=== PATIENT | female | born 1945 | race Hispanic/Latino ===

== ENCOUNTER 2019-04-23 06:58 | Inpatient (IN) | payer MEDICARE ==
[2019-04-23] MEDS ORDERED: Labetalol 5 mg/ml Inj 20ML IV STA (07:50)
[2019-04-23 08:09] LABS: BASO # 0.03 K/mm3 (0.0-2.0); BASO % 0.4 % (0.0-3.0); EOS # 0.2 (0.0-0.7); EOS % 2.1 % (1.5-5.0); LYMPH # 1.8 (1.2-3.4); LYMPH % 24.2 % (22.0-35.0); MEAN CELL VOLUME 87.6 fl (80.0-105.0); MEAN CORPUSCULAR HEMOGLOBIN 28.5 pg (25.0-35.0); MEAN CORPUSCULAR HGB CONC 32.5 g/dl (31.0-37.0); MEAN PLATELET VOLUME 9.2 fl (7.0-11.0); MONO # 0.5 (0.1-0.6); MONO % 6.2 % (1.0-6.0); RBC 3.86 10^6/uL (3.5-6.1); RED CELL DISTRIBUTION WIDTH 14.2 % (11.5-14.5); WHITE BLOOD COUNT 7.6 10^3/uL (4.5-11.0)
--- NOTE | 2019-04-23 08:11 | ED PDOC ---
Arrival/HPI - General Chief Complaint: Abdominal Pain Time Seen by Provider: 04/23/19 07:12 Historian: Patient, Spouse - History of Present Illness Narrative History of Present Illness (Text): 04/23/19 08:06 CC: abdominal pain HPI: 73 yo female w/ PMH of HTN, DM2, CAD comes to ED for evaluation of abdominal pain. Patient and were on cruise ship yesterday when she began feeling mid-epigastric pain. Patient states that she started experiencing intense aching epigastric pain that radiated to the back, vomited 8 times, and was subsequently see by the cruise ship doctors. The blood work from the cruise was sent over with a diagnosis of acute pancreatitis. Denies alcohol use and trauma prior to event. Today, patient is currently exhibiting no abdominal pain, nausea, or vomiting. Patient currently asymptomatic and has no complaints to offer. Denies fevers, chills, chest pain, shortness of breath, n/v, constipation or diarrhea, and dysuria. 04/23/19 08:12 Time/Duration: 24 hours Symptom Onset: Sudden Symptom Course: Resolved Quality: Aching, Stabbing Severity Level: 10, Severe Activities at Onset: Rest Context: Sitting Past Medical History - Provider Review Nursing Documentation Reviewed: Yes - Travel History If Yes, travel location?: Cruise - Infectious Disease Hx of Infectious Diseases: None - Cardiac Hx Coronary Artery Disease: Yes Hx Hypertension: Yes - Psychiatric Hx Substance Use: No Family/Social History - Physician Review Nursing Documentation Reviewed: Yes Family/Social History: No Known Family HX Smoking Status: Unknown If Ever Smoked Hx Alcohol Use: (N/A) Hx Substance Use: No Allergies/Home Meds Allergies/Adverse Reactions: Allergies Sulfa (Sulfonamide Antibiotics) Adverse Reaction (Verified 04/23/19 07:26) SWELLING Home Medications: Home Meds Medication Instructions Recorded Confirmed Ascorbic Acid [Vitamin C 500 mg 500 mg PO DAILY 04/23/19 04/23/19 Tab] Cetirizine HCl [Zyrtec] 10 mg PO DAILY 04/23/19 04/23/19 Cholecalciferol (Vitamin D3) 2,000 units PO MWF 04/23/19 04/23/19 [Vitamin D3] Lisinopril [Zestril] 10 mg PO BID 04/23/19 04/23/19 Multivit-Min/Iron/Folic/Lutein 1 tab PO DAILY 04/23/19 04/23/19 [Multivitamin Women 50 Plus Tab] Rosuvastatin Calcium [Crestor] 10 mg PO DAILY 04/23/19 04/23/19 Sertraline [Zoloft] 50 mg PO DAILY 04/23/19 04/23/19 cloNIDine [Catapres] 0.1 mg PO BID 04/23/19 04/23/19 metFORMIN [glucOPHAGE] 500 mg PO BID 04/23/19 04/23/19 Review of Systems - Review of Systems Constitutional: Normal. absent: Fatigue, Weight Change, Fevers Eyes: Normal. absent: Vision Changes, Photophobia, Eye Pain ENT: Normal. absent: Hearing Changes, Tinnitus, TMJ Pain Respiratory: Normal. absent: SOB, Cough, Sputum, Wheezing Cardiovascular: Normal. absent: Chest Pain, Palpitations, Edema Gastrointestinal: Normal. absent: Abdominal Pain, Stool Changes, Constipation, Diarrhea, Nausea, Vomiting Genitourinary Female: Normal. absent: Dysuria, Frequency, Hematuria, Vaginal Bleeding Musculoskeletal: Normal. absent: Arthralgias, Back Pain, Neck Pain, Joint Swelling Skin: Normal. absent: Rash, Pruritis, Skin Lesions Neurological: Normal. absent: Headache, Dizziness, Focal Weakness Endocrine: Normal. absent: Diaphoresis, Polyuria, Polydipsia Hemo/Lymphatic: Normal. absent: Adenopathy, Easy Bleeding, Easy Bruising Psychiatric: Normal. absent: Anxiety, Depression, Suicidal Ideation Physical Exam Vital Signs Reviewed: Yes Vital Signs Temp Pulse Resp BP Pulse Ox 04/23/19 07:39 98.6 F 04/23/19 07:16 82 20 196/118 H 98 Temperature: Afebrile Blood Pressure: Hypertensive Pulse: Regular Respiratory Rate: Normal Appearance: Positive for: Well-Appearing, Non-Toxic, Comfortable Pain Distress: None Mental Status: Positive for: Alert and Oriented X 3 - Systems Exam Head: Present: Atraumatic, Normocephalic Pupils: Present: PERRL Extroacular Muscles: Present: EOMI Conjunctiva: Present: Normal Mouth: Present: Moist Mucous Membranes Neck: Present: Normal Range of Motion. No: Meningeal Signs, JVD Respiratory/Chest: Present: Clear to Auscultation, Good Air Exchange. No: Respiratory Distress, Accessory Muscle Use, Wheezes Cardiovascular: Present: Regular Rate and Rhythm, Normal S1, S2. No: Murmurs, Tachycardic Abdomen: Present: Normal Bowel Sounds. No: Tenderness, Distention, Peritoneal Signs Upper Extremity: Present: Normal Inspection. No: Cyanosis, Edema Lower Extremity: Present: Normal Inspection. No: Edema Neurological: Present: GCS=15, CN II-XII Intact, Speech Normal Skin: Present: Warm, Dry, Normal Color. No: Rashes Psychiatric: Present: Alert, Oriented x 3, Normal Insight, Normal Concentration Medical Decision Making ED Course and Treatment: 04/23/19 08:14 Impression 73 yo female w/ PMH of HTN, DM2, CAD comes to ED for evaluation of abdominal pain. Plan -Lipid Panel -CBC -CMP -Lipase -Amylase -Labetalol -Troponin -EKG Prior Visits No prior visits Progress Notes pending above labs and cx response to anti-Hypertension agent 04/23/19 08:59 Blood work shows elevated lipase Spoke with Dr. Montesinos will accept patient to his service Re-evaluation Time: 09:24 Reassessment Condition: Re-examined, Unchanged - Lab Interpretations Lab Results: 04/23/19 07:58 04/23/19 07:58 Lab Results 04/23/19 07:58: Sodium 141, Potassium 3.3 L, Chloride 107, Carbon Dioxide 23, Anion Gap 14, BUN 16, Creatinine 0.7, Est GFR ( Amer) > 60, Est GFR (Non- Af Amer) > 60, Random Glucose 116 H, Calcium 9.3, Total Bilirubin 0.6, AST 23, ALT 23, Alkaline Phosphatase 84, Troponin I 0.02, Total Protein 7.2, Albumin 4.3, Globulin 2.9, Albumin/Globulin Ratio 1.5, Triglycerides 165 H, Cholesterol 164, LDL Cholesterol Direct 72, HDL Cholesterol 55, Lipase 2393 H 04/23/19 07:58: WBC 7.6, RBC 3.86, Hgb 11.0 L, Hct 33.8 L, MCV 87.6, MCH 28.5, MCHC 32.5, RDW 14.2, Plt Count 266, MPV 9.2, Neut % (Auto) 67.1, Lymph % (Auto) 24.2, [place] % (Auto) 6.2 H, Eos % (Auto) 2.1, Baso % (Auto) 0.4, Lymph # (Auto) 1.8, [place] # (Auto) 0.5, Eos # (Auto) 0.2, Baso # (Auto) 0.03, Absolute Neuts (auto) 5.06 I have reviewed the lab results: Yes Interpretation: Abnormal lab values - Medication Orders Current Medication Orders: Discontinued Medications Labetalol HCl (Trandate) 20 mg IV STAT STA Stop: 04/23/19 07:51 Disposition/Present on Arrival - Present on Arrival Any Indicators Present on Arrival: No History of DVT/PE: No History of Uncontrolled Diabetes: No Urinary Catheter: No History of Decub. Ulcer: No History Surgical Site Infection Following: None - Disposition Have Diagnosis and Disposition been Completed?: Yes Diagnosis: Pancreatitis Disposition: HOSPITALIZED Disposition Time: 09:03 Patient Plan: Admission Patient Problems: Current Active Problems Problem Status Onset Pancreatitis Acute Condition: FAIR Forms: [employer] (Irish)
[2019-04-23 08:22] LABS: ALB/GLOB RATIO 1.5 (1.1-1.8); ALBUMIN 4.3 g/dL (3.0-4.8); BLOOD UREA NITROGEN 16 mg/dL (7-21); CALCIUM 9.3 mg/dL (8.4-10.5); GFR NON-AFRICAN AMERICAN > 60; HDL CHOLESTEROL 55 mg/dL (29-60)
[2019-04-23 08:31] LABS: ALT/SGPT 23 U/L (7-56); AST/SGOT 23 U/L (14-36); LIPASE 2393 U/L (23-300)
[2019-04-23 08:35] LABS: TROPONIN I 0.02 ng/mL
[2019-04-23 08:39] LABS: LDL CHOLESTEROL 72 mg/dL (0-129)
[2019-04-23] MEDS ORDERED: Potassium Chloride 20 mEq ER Tab PO STA (11:02)
[2019-04-23] MEDS: Sodium Chloride 0.45% 1,000 ML IV SCH (11:05)
[2019-04-23] MEDS: Insulin Reg-MEDIUM-Coverage SC SCH ×3 (12:06→21:26)
--- NOTE | 2019-04-23 12:28 | CP.PCM.CON ---
<Leonid Laughlin - Last Filed: 04/23/19 12:19> History of Present Illness - History of Present Illness History of Present Illness: PGY6 GI Fellow Consult Note Patient is a 73yo female with PMHx significant for HTN, DM2, thoracic aortic aneurysm, left breast cancer s/p lumpectomy and radiation therapy who presented to the ED with abdominal pain. The patient has been on a cruise ship for the and two days prior to admission, she developed mid-lower back pain prior to bed. The following morning, she awoke with 10/10 epigastric stabbing pain and was evaluated by the ship physician and diagnosed with acute pancreatitis. She was given 4 liters of IVF and bowel rest and at this point, admits to significant improvement in symptoms but was encouraged to come to the ER. She admits to prior issues with gallstones but had cholecystectomy > 10 years ago in [place]. Does admit to 2+ beers daily but has not had any EtOH since boarding her ship last week. No new medications or sick contacts. Denies weight loss, change in bowel habits. 12 system ROS performed and negative except where stated PMHx: See HPI PSHx: Cholecystectomy, appendectomy, hysterectomy FHx: Discussed with patient and she denies significant family history Social: Deniest tobacco use, + EtOH use, no illicit drug use Endo: No prior endoscopic evaluations available for review Past Patient History - Infectious Disease Hx of Infectious Diseases: None - Past Social History Smoking Status: Unknown If Ever Smoked - CARDIAC Hx Hypertension: Yes - PSYCHIATRIC Hx Substance Use: No Meds Allergies/Adverse Reactions: Allergies Allergy/AdvReac Type Severity Reaction Status Date / Time Sulfa (Sulfonamide AdvReac SWELLING Verified 04/23/19 07:26 Antibiotics) - Medications Medications: Current Medications Atorvastatin Calcium (Lipitor) 40 mg PO DIN [facility] Clonidine HCl (Catapres) 0.1 mg PO BID [facility] Last Admin: 04/23/19 11:00 Dose: 0.1 mg Sodium Chloride (Sodium Chloride 0.45%) 1,000 mls @ 40 mls/hr IV .Q24H [facility] Last Admin: 04/23/19 11:05 Dose: 40 mls/hr Insulin Human Regular (Humulin R Med) 0 units SC ACHS [facility]; Protocol Last Admin: 04/23/19 12:06 Dose: Not Given Lisinopril (Zestril) 10 mg PO BID [facility] Last Admin: 04/23/19 11:01 Dose: 10 mg Metformin HCl (Glucophage) 500 mg PO BID [facility] Last Admin: 04/23/19 11:00 Dose: 500 mg Sertraline HCl (Zoloft) 50 mg PO DAILY [facility] Last Admin: 04/23/19 10:59 Dose: 50 mg Physical Exam - Constitutional Appears: Non-toxic, No Acute Distress, Other (obese) - Eye Exam Eye Exam: EOMI, PERRL - ENT Exam ENT Exam: Mucous Membranes Moist - Respiratory Exam Respiratory Exam: Clear to Auscultation Bilateral. absent: Rales, Rhonchi, Wheezes - GI/Abdominal Exam GI & Abdominal Exam: Normal Bowel Sounds, Soft, Tenderness (epigastric with deep palpation). absent: Distended, Firm, Guarding, Organomegaly, Rigid - Extremities Exam Extremities exam: Positive for: normal inspection. Negative for: pedal edema - Neurological Exam Neurological exam: Alert, Oriented x3 - Psychiatric Exam Psychiatric exam: Normal Affect, Normal Mood - Skin Skin Exam: Dry, Warm Results - Vital Signs Recent Vital Signs: Last Vital Signs Temp 98.6 F 04/23/19 07:39 Pulse 72 04/23/19 12:06 Resp 18 04/23/19 12:06 BP 180/107 H 04/23/19 12:06 Pulse Ox 97 04/23/19 12:06 - Labs Result Diagrams: 04/23/19 07:58 04/23/19 07:58 Labs: Laboratory Results - last 24 hr 04/23/19 04/23/19 07:58 07:58 WBC 7.6 RBC 3.86 Hgb 11.0 L Hct 33.8 L MCV 87.6 MCH 28.5 MCHC 32.5 RDW 14.2 Plt Count 266 MPV 9.2 Neut % (Auto) 67.1 Lymph % (Auto) 24.2 [place] % (Auto) 6.2 H Eos % (Auto) 2.1 Baso % (Auto) 0.4 Lymph # (Auto) 1.8 [place] # (Auto) 0.5 Eos # (Auto) 0.2 Baso # (Auto) 0.03 Absolute Neuts (auto) 5.06 Sodium 141 Potassium 3.3 L Chloride 107 Carbon Dioxide 23 Anion Gap 14 BUN 16 Creatinine 0.7 Est GFR ( Amer) > 60 Est GFR (Non-Af Amer) > 60 Random Glucose 116 H Calcium 9.3 Total Bilirubin 0.6 AST 23 ALT 23 Alkaline Phosphatase 84 Troponin I 0.02 Total Protein 7.2 Albumin 4.3 Globulin 2.9 Albumin/Globulin Ratio 1.5 Triglycerides 165 H Cholesterol 164 LDL Cholesterol Direct 72 HDL Cholesterol 55 Lipase 2393 H Assessment & Plan - Assessment and Plan (Free Text) Assessment: Patient is a 73yo female with PMHx significant for HTN, DM2, thoracic aortic aneurysm, left breast cancer s/p lumpectomy and radiation therapy who presented to the ED with abdominal pain -Abdominal pain - suspect acute pancreatitis -Hypertensive urgency -DM2 -Thoracic aortic aneurysm -H/O breast cancer s/p lumpectomy and radiation Plan: -Aggressive BP control given known thoracic aortic aneurysm -Cardiology consultation noted -When possible, IVF with LR at 100+cc/hr if BP improved -Liquid diet -Check abdominal U/S -Consider cross-sectional imaging with CT A/P PO contrast - IV may be limited given Metformin use -Lipid panel noted; denies EtOH use - consider medication induced pancreatitis (ACEi) but may ultimately require EUS for further evaluation once acute pancreatitis resolves - Date & Time Date: 04/23/19 Time: 10:30 <Ben Rivers - Last Filed: 04/23/19 13:34> Meds - Medications Medications: Current Medications Atorvastatin Calcium (Lipitor) 40 mg PO DIN [facility] Clonidine HCl (Catapres) 0.1 mg PO Q1H [facility] Stop: 04/23/19 15:01 Last Admin: 04/23/19 13:15 Dose: 0.1 mg Clonidine HCl (Catapres Tts1 0.1 Mg/24 Hr) 1 patch TD Q7D@1000 [facility] Last Admin: 04/23/19 13:15 Dose: 1 patch Sodium Chloride (Sodium Chloride 0.45%) 1,000 mls @ 40 mls/hr IV .Q24H [facility] Last Admin: 04/23/19 11:05 Dose: 40 mls/hr Insulin Human Regular (Humulin R Med) 0 units SC ACHS [facility]; Protocol Last Admin: 04/23/19 12:06 Dose: Not Given Lisinopril (Zestril) 10 mg PO BID [facility] Last Admin: 04/23/19 11:01 Dose: 10 mg Metformin HCl (Glucophage) 500 mg PO BID [facility] Last Admin: 04/23/19 11:00 Dose: 500 mg Sertraline HCl (Zoloft) 50 mg PO DAILY [facility] Last Admin: 04/23/19 10:59 Dose: 50 mg Results - Vital Signs Recent Vital Signs: Last Vital Signs Temp 97.4 F L 04/23/19 12:00 Pulse 70 04/23/19 13:15 Resp 18 04/23/19 12:06 BP 201/89 H 04/23/19 13:15 Pulse Ox 97 04/23/19 12:06 - Labs Result Diagrams: 04/23/19 07:58 04/23/19 07:58 Labs: Laboratory Results - last 24 hr 04/23/19 04/23/19 04/23/19 07:58 07:58 12:55 WBC 7.6 RBC 3.86 Hgb 11.0 L Hct 33.8 L MCV 87.6 MCH 28.5 MCHC 32.5 RDW 14.2 Plt Count 266 MPV 9.2 Neut % (Auto) 67.1 Lymph % (Auto) 24.2 [place] % (Auto) 6.2 H Eos % (Auto) 2.1 Baso % (Auto) 0.4 Lymph # (Auto) 1.8 [place] # (Auto) 0.5 Eos # (Auto) 0.2 Baso # (Auto) 0.03 Absolute Neuts (auto) 5.06 Sodium 141 Potassium 3.3 L Chloride 107 Carbon Dioxide 23 Anion Gap 14 BUN 16 Creatinine 0.7 Est GFR ( Amer) > 60 Est GFR (Non-Af Amer) > 60 Random Glucose 116 H Calcium 9.3 Total Bilirubin 0.6 AST 23 ALT 23 Alkaline Phosphatase 84 Troponin I 0.02 Total Protein 7.2 Albumin 4.3 Globulin 2.9 Albumin/Globulin Ratio 1.5 Triglycerides 165 H Cholesterol 164 LDL Cholesterol Direct 72 HDL Cholesterol 55 Lipase 2393 H 1510 H Attending/Attestation - Attestation I have personally seen and examined this patient.: Yes I have fully participated in the care of the patient.: Yes I have reviewed all pertinent clinical information: Yes Notes (Text): 04/23/19 13:29 I have seen and examined patient with GI fellow. Agree with above documentation with the following additions. In brief, this is a 73 year old female with history of DM, HTN, obesity, thoracic aneurysm, breast cancer who presents to hospital with complaint of abdominal pain. She was recently on cruise ship and developed sharp epigastric abdominal pain 10/10 intensity radiating to back and was diagnosed with acute pancreatitis. She typically consumes daily ETOH up to 3-4 drinks though claims to have not had any ETOH in the past 5-6 days. She denies nausea, vomiting, fever/chills, weight loss, rectal bleeding, diarrhea, or change in bowel habits. Currently she is seen resting in bed comfortably, pain has nearly resolved. Additional physical exam: CV: RRR S1S2 DM/HTN Obesity Thoracic aneurysm History of breast cancer Abdominal pain - pancreatitis of unclear etiology, ?drug induced - Liquid diet as tolerated - Continue with IVF hydration - Obtain Abdominal US and CT imaging for further evaluation of biliary system and pancreas - Follow up cardiology recommendations - Will continue to monitor patient clinical course
[2019-04-23 14:17] VITALS: BMI 31.6
--- NOTE | 2019-04-23 14:21 | PN ---
DATE: 04/23/2019 CARDIOLOGY FOLLOWUP SUBJECTIVE: The patient's now comes to me and says that they would not like the CAT scan done here. They have agreed to do it when they are down back in [place]. Gera Coats MD
--- NOTE | 2019-04-23 16:37 | CON ---
DATE OF CONSULTATION: 04/23/2019 CARDIOLOGY CONSULTATION HISTORY: The patient is a 73-year-old woman from [place], who was on a cruise ship, who developed nausea, x-ray on the cruise ship, they were told of a possible aortic aneurysm. The patient denies chest pain. She does admit to nausea, which is now resolved since she has been n.p.o. She suffers from hypertension, diabetes mellitus, no previous cardiac history in the past. No shortness of breath. No edema in the lower extremities. Her past medical history includes cholecystectomy. SOCIAL HISTORY: Admits to smoke, and has no alcohol intake. REVIEW OF SYSTEMS: Review of systems were noted. No cardiac symptomatology is found. PHYSICAL EXAMINATION: VITAL SIGNS: Blood pressure 180/107, heart rate is in the 70s. NECK: Negative JVD. LUNGS: Without rales, CARDIAC: Heart rate S1, S2. EXTREMITIES: Without edema. LABORATORY DATA: EKG shows no acute changes. Glucose is 116. Troponin is negative x1. Lipase 2390, hemoglobin is 11. IMPRESSION: 1. Pancreatitis 2. Accelerated hypertension may be exacerbated by cessation of clonidine. 3. Diabetes mellitus. 4. Obesity. 5. Anemia. 6. History of abnormal chest x-ray on cruise ship stating an aneurysm. PLAN: Given these findings, we will add clonidine including few boluses to get her blood pressure down. I have discussed CT scans with the patient and family. They are agreeable. We will obtain a CT scan of the chest with contrast. Gera Coats MD
--- NOTE | 2019-04-23 19:24 | CARD ---
APPROVED REPORT Date of service: 04/23/2019 EKG Measurement Heart [id number] <Conclusion> Normal sinus rhythm Possible Inferior infarct, age undetermined Abnormal ECG
--- NOTE | 2019-04-23 20:45 | HP ---
DATE OF EXAM: 04/23/2019 HISTORY OF PRESENT ILLNESS: She is 73-year-old female who came from the cruise ship. She was having a past medical history of hypertension, diabetes, CAD, abdominal pain. She was told she had pancreatitis from a midepigastric pain. She was having nausea and vomiting. Now she is here in the emergency room with pancreatitis, acute with elevated blood pressure. She has hypertension history. FAMILY HISTORY: Unknown family history. SOCIAL HISTORY: No smoking. No drinking. No drugs. ALLERGIES TO SULFA. CURRENT MEDICATIONS: She takes vitamin C, Zyrtec, vitamin D3, Zestril, multivitamins, Crestor, Zoloft, Catapres, Glucophage. REVIEW OF SYSTEMS: No fatigue or weight change. No vision changes. No hearing changes. No shortness of breath or cough. No chest pain or palpitations. She does have abdominal pain. She had some diarrhea and that has gotten better. No problems urinating. No arthralgias. No skin issues. No headaches or dizziness. No sweating. No easy bleeding. No depression or anxiety. PHYSICAL EXAMINATION VITAL SIGNS: A 98.6 temperature, 82 pulse, 196/118 blood pressure that is mendoza high, a 98% O2 sat and 20 respiratory rate. GENERAL: Well-appearing, nontoxic. Alert and oriented x3. HEENT: Head is atraumatic, normocephalic. Extraocular muscles are intact. Pupils equally reactive to light and accommodation. Throat is dry. NECK: Supple. HEART: Regular rate. Normal S1, S2. LUNGS: Decreased breath sounds but clear to auscultation. ABDOMEN: Soft, nontender, positive bowel sounds. No guarding, no rebound or CVA tenderness. EXTREMITIES: No edema. NEUROLOGIC: GCS is 15. Cranial nerves II through XII grossly intact. Alert and oriented x3. She is comfortable lying in bed in the emergency room. SKIN: Warm and dry. LABORATORY DATA: She has a 141 sodium, potassium is 3.3, we will replace potassium. BUN is 16, creatinine 0.7, GFR is greater than 60, sugar is 116, calcium is 9.3, total bili is 0.6. AST is 23, ALT is 23, alk phos 84. Troponin I is 0.02, total protein is 47.2, albumin is 4.3, triglycerides 165, cholesterol is 164, LDL is 72. Lipase is mendoza high at 2393. White count is 7.6, hemoglobin 11, hematocrit 33.8, platelets are 266. ASSESSMENT AND PLAN: She is here for accelerated blood pressure and pancreatitis. She will be n.p.o., IV fluids, have consults with Cardiology and Gastroenterology. She will be on medications for her elevated blood pressure. We will check her labs tomorrow, BUN and insulin coverage. Hopefully she will improve. She is from the cruise ship with accelerated hypertension and pancreatitis. Zaheer Montesinos DO
[2019-04-24 07:12] LABS: HEMOGLOBIN 11.5 g/dL (12.0-16.0); MEAN CELL VOLUME 88.4 fl (80.0-105.0); MEAN CORPUSCULAR HEMOGLOBIN 29.1 pg (25.0-35.0); MEAN PLATELET VOLUME 9.1 fl (7.0-11.0); RBC 3.95 10^6/uL (3.5-6.1); RED CELL DISTRIBUTION WIDTH 14.3 % (11.5-14.5); WHITE BLOOD COUNT 8.8 10^3/uL (4.5-11.0)
[2019-04-24] MEDS: Insulin Reg-MEDIUM-Coverage SC SCH ×4 (07:30→22:12)
[2019-04-24 07:41] LABS: ALB/GLOB RATIO 1.6 (1.1-1.8); ALBUMIN 4.3 g/dL (3.0-4.8); ALT/SGPT 18 U/L (7-56); AST/SGOT 22 U/L (14-36); BLOOD UREA NITROGEN 17 mg/dL (7-21); CALCIUM 9.5 mg/dL (8.4-10.5); GFR NON-AFRICAN AMERICAN > 60
[2019-04-24] MEDS: Sodium Chloride 0.45% 1,000 ML IV SCH (09:03)
--- NOTE | 2019-04-24 09:15 | CP.PCM.PN ---
Subjective - Date & Time of Evaluation Date of Evaluation: 04/24/19 Time of Evaluation: 09:11 - Subjective Subjective: Patient seen and examined, resting in bed comfortably. No acute events overnight, she denies abdominal pain, nausea, vomiting, fever/chills. Tolerating PO liquids without difficulty. Review of vitals from today shows elevated BP. 12 point review of systems performed, negative aside from mentioned above. Objective - Vital Signs/Intake and Output Vital Signs (last 24 hours): Temp Pulse Resp BP Pulse Ox 97.8 F 82 18 179/80 H 96 04/24/19 06:00 04/24/19 06:00 04/24/19 06:00 04/24/19 06:00 04/24/19 06:00 Intake and Output: 04/24/19 04/24/19 06:59 18:59 Intake Total 480 Output Total 4 Balance 476 - Medications Medications: Current Medications Atorvastatin Calcium (Lipitor) 40 mg PO DIN [facility] Last Admin: 04/23/19 18:43 Dose: 40 mg Clonidine HCl (Catapres Tts1 0.1 Mg/24 Hr) 1 patch TD Q7D@1000 [facility] Last Admin: 04/23/19 13:15 Dose: 1 patch Sodium Chloride (Sodium Chloride 0.45%) 1,000 mls @ 40 mls/hr IV .Q24H [facility] Last Admin: 04/24/19 09:03 Dose: 40 mls/hr Insulin Human Regular (Humulin R Med) 0 units SC ACHS [facility]; Protocol Last Admin: 04/23/19 21:26 Dose: Not Given Lisinopril (Zestril) 10 mg PO BID [facility] Last Admin: 04/24/19 09:03 Dose: 10 mg Metformin HCl (Glucophage) 500 mg PO BID [facility] Last Admin: 04/24/19 09:03 Dose: 500 mg Sertraline HCl (Zoloft) 50 mg PO DAILY [facility] Last Admin: 04/24/19 09:03 Dose: 50 mg - Labs Labs: 04/24/19 06:30 04/24/19 06:30 - Constitutional Appears: Non-toxic, No Acute Distress - Head Exam Head Exam: NORMAL INSPECTION - Eye Exam Eye Exam: EOMI, Normal appearance - ENT Exam ENT Exam: Mucous Membranes Moist - Respiratory Exam Respiratory Exam: Clear to Ausculation Bilateral - Cardiovascular Exam Cardiovascular Exam: REGULAR RHYTHM, +S1, +S2 - GI/Abdominal Exam GI & Abdominal Exam: Soft, Normal Bowel Sounds Additional comments: non tender to palpation in four quadrants - Extremities Exam Extremities Exam: Normal Inspection - Skin Skin Exam: Dry, Intact, Normal Color, Warm Assessment and Plan - Assessment and Plan (Free Text) Assessment: DM HTN History of breast cancer Abdominal pain, pancreatitis of unclear etiology Thoracic aneurysm Plan: - Advance diet to low fat as tolerated - Await final read of abdominal US, normal caliber CBD as interpreted by me s/p cholecystectomy - LFTs normal, continue to monitor - From GI standpoint, if tolerating diet ok to discharge with subsequent outpatient follow up. Patient has planned flight back home to [place] tomorrow and will plan to follow up with PMD early next week.
--- NOTE | 2019-04-24 09:44 | RAD ---
Date of service: 04/23/2019 HISTORY: nausea COMPARISON: No prior. TECHNIQUE: Chest PA and lateral views FINDINGS: LUNGS: No active pulmonary disease. PLEURA: No significant pleural effusion identified. No pneumothorax apparent. CARDIOVASCULAR: Aortic atherosclerotic calcifications. Cardiomediastinal silhouette enlarged. OSSEOUS STRUCTURES: Spinal degenerative changes. VISUALIZED UPPER ABDOMEN: Normal. OTHER FINDINGS: None. IMPRESSION: No active disease.
--- NOTE | 2019-04-24 10:30 | US ---
Date of service: 04/23/2019 HISTORY: abdominal pain, ? panc COMPARISON: None. TECHNIQUE: Sonographic evaluation of the abdomen. FINDINGS: LIVER: Measures 17.8 cm. Normal echogenicity of the liver parenchyma. No mass. No intrahepatic bile duct dilatation. GALLBLADDER: Unremarkable. No gallstones. COMMON BILE DUCT: Measures 5 mm. No stones. No dilatation. PANCREAS: Unremarkable as visualized. No mass. No ductal dilatation. RIGHT KIDNEY: Measures 10.8 x 4.0 x 4.7cm. Normal echogenicity. No calculus, mass, or hydronephrosis. LEFT KIDNEY: Measures 11.5 x 4.5 x 4.9cm. Normal echogenicity. No calculus, mass, or hydronephrosis. SPLEEN: Normal in size and contour. No mass. AORTA: No aneurysmal dilatation. IVC: Unremarkable. OTHER FINDINGS: None. IMPRESSION: Mild hepatomegaly.
--- NOTE | 2019-04-24 16:35 | PN ---
DATE: 04/24/2019 SUBJECTIVE: She is resting in bed, but having blood pressure issues. We are trying to get her blood pressure down. I believe GI is happy with the pancreatitis and will be increasing her diet. LABORATORY DATA: She has an 8.8 white count, 11.5 hemoglobin, 34.9 hematocrit, 295 platelets. Sodium 140, potassium 3.7, BUN 17, creatinine 0.7, GFR is greater than 60. Sugar is 111, calcium is 9.5, total bilirubin is 0.7, AST 22, ALT of 18, alk phos 87, total protein 7.1, and the amylase was 183, I am waiting for the lipase to come back. PHYSICAL EXAMINATION: VITAL SIGNS: She has a 97.8 temperature, 82 pulse, blood pressure has been 179/80 and 189/100. She tells me that she was on Norvasc, it was not in her list. I will add Norvasc today. Respiratory rate 18, 96% saturation on room air. HEENT: Head is atraumatic and normocephalic. HEART: Regular rate. LUNGS: Decreased breath sounds but clear. ABDOMEN: Soft, obese. EXTREMITIES: No edema. MEDICATIONS: She is currently on Catapres patch, Glucophage, insulin, Lipitor, Norvasc 10 mg. Gave her that this morning. If her blood pressure drops, okay, I will let them go tomorrow for leaving. To stop IV fluids, continue norvasc, Zestril and clonidine patch and po. She is on GI diet because she is able to eat and go to the bathroom and no nausea, vomiting, or abdominal pain. When we get the blood pressure down,I will get her discharged tomorrow. I discussed with both patient and her that I hope to get her BP down tomorrow and if they buy airplane tickets they might lose the cost if it is not safe. Still waiting for cardiology to see her. Zaheer Montesinos DO MTDD
--- NOTE | 2019-04-24 18:20 | PN ---
DATE: 04/24/[address] Gera Coats. SUBJECTIVE: The patient denies any chest pain and no abdominal pain at this time. PHYSICAL EXAMINATION: VITAL SIGNS: Blood pressure 189/100, heart rate 71, temperature 97.8, respirations 20. HEENT: Normocephalic. CHEST: Clear. HEART: S1 and S2, regular. EXTREMITIES: No pedal edema. No calf tenderness. LABORATORY DATA: Today's hemoglobin and hematocrit 11.5 and 34.9. White count and platelet count are within normal limits. Today's SMA-7 is within normal limits except for glucose of 132. Amylase is elevated today at 183. Initial lipase on admission was 2393. Admitting EKG revealed sinus rhythm, possible inferior infarct of undetermined age, heart rate is 70. Abdominal ultrasound revealed mild hepatomegaly. Chest x-ray revealed mild cardiomegaly. ASSESSMENT: 1. Acute pancreatitis. 2. Uncontrolled hypertension. 3. Diabetes mellitus. 4. History of aortic aneurysm incidentally found on a CT scan performed in the cruise ship. The patient refuses to have a repeat abdomen CT scan in the hospital. RECOMMENDATIONS: Continue clonidine patch at 0.1 mg every 24 hours, continue Glucophage 500 mg twice a day, Lipitor 40 mg once a day, Norvasc at 10 mg once a day which was started today, Zestril 10 mg twice a day. Moises Nichols MD
[2019-04-25 00:50] VITALS: RESP 20
[2019-04-25 05:44] VITALS: PULSE 90
[2019-04-25 08:02] VITALS: BP 137/78; TEMP 98; O2SAT 94
--- NOTE | 2019-04-26 09:50 | DS ---
HOSPITAL COURSE: They had bought the airplane tickets this morning, their flight was at 9, they wanted to leave at 6. Her blood pressure would not come down this morning, it was 195/73 and was high as 188/108, but thankfully after the medicines were on board for an hour, this dropped down to 137/78, she was able to leave without a fuss at the right time. They promised me that after they got out of the plane they would go to an urgent center in [place]. They have their medications, they have got a Catapres patch on, they have Catapres 0.1 with them, plus they have Glucophage, they have Norvasc with them, they have Zestril and Zoloft, that is her regular medication that she takes. Her temperature this morning. The blood pressure came down to an adequate level this morning to be able to be discharged, that blood pressure was 137/78. She is doing well. No chest pain or shortness of breath. being discharged She also knows to be followed up with an ultrasound that we found when she gets back to [place]. They found on the cruise ship that there was an aortic aneurysm possible, but they had examination. GI felt that they were good to go. CECIL titus, she improved and hopefully she will do very well. She was discharged at 7 a.m. She came into the ER from a cruise ship. Zaheer Montesinos DO MTDAngela
== END 2019-04-25 07:50 | disposition home or self-care (01) | DRG 440 ==
LOC: ED 06:58 → ERH 09:03 → 2RSO 12:13
PROVIDERS: ADMIT Family Medicine; ATTEND Family Medicine
DX: K85.90 Acute pancreatitis without necrosis or infection, unspecified (principal); I16.0 Hypertensive urgency; I71.2 Thoracic aortic aneurysm, without rupture; I10 Essential (primary) hypertension; E11.9 Type 2 diabetes mellitus without complications; I25.10 Atherosclerotic heart disease of native coronary artery without angina pectoris; D64.9 Anemia, unspecified; E66.9 Obesity, unspecified; Z68.31 Body mass index [BMI] 31.0-31.9, adult; Z85.3 Personal history of malignant neoplasm of breast; Z88.2 Allergy status to sulfonamides